=== PATIENT | male | born 1985 | race Caucasian/White ===

== ENCOUNTER 2017-09-30 10:53 | Emergency (ER) | payer BC ==
[2017-09-30] MEDS ORDERED: methylPREDNISolone Sodium Succinate 125 MG/2 ML SDV IM ONE (11:53)
--- NOTE | 2017-09-30 11:53 | EDM.PDOC ---
ED HPI GENERAL MEDICAL PROBLEM - General Chief Complaint: Skin Complaint Stated Complaint: POSSIBLE HIVES ALL OVER BODY Time Seen by Provider: 09/30/17 11:40 Source of Information: Reports: Patient History Limitations: Reports: No Limitations - History of Present Illness INITIAL COMMENTS - FREE TEXT/NARRATIVE: HISTORY AND PHYSICAL: History of present illness: [Patient comes to the emergency room complaining of hives. He is from [place] and is in the [place] area working. Over the past month he started to develop erythematous pruritic lesions to his entire body. He usually develops them after showering in the evening and are worse when he wakes up in the morning. States that he has had itching and lesions in his scalp down his trunk back upper and lower extremities. He has not had any fever or chills. He's not had symptoms of illness. He denies any new body washes, laundry detergent and soap. He has photographs on his phone that he brings with him to the ER today showing wheels and hive-like lesions consistent with an allergic reaction. He denies fever and chills. No difficulty swallowing, sore throat, chest pain shortness of breath or difficulty breathing. He has no other complaints or concerns. He noticed that he was having the same symptoms not just when he was here at work but also when he was at home. States that he takes his same body wash in soaps here that he is at home.] Review of systems: As per history of present illness and below otherwise all systems reviewed and negative. Past medical history: As per history of present illness and as reviewed below otherwise noncontributory. Surgical history: As per history of present illness and as reviewed below otherwise noncontributory. Social history: No reported history of drug or alcohol abuse. Family history: As per history of present illness and as reviewed below otherwise noncontributory. Physical exam: Gen.: Well-developed well-nourished male in no acute distress. HEENT: Atraumatic, normocephalic. Skin. Slightly erythematous hive-like lesions scattered across chest and back. Nonblanching. No bull's-eye type rashes. Symptoms have improved significantly when compared with those that were photographed. Neuro: Awake, alert, oriented. Motor and sensory unremarkable throughout. Exam nonfocal. Therapeutics: [Solu-Medrol 125 mg IM] Impression: [Hives] Plan: [Discussed with patient that skin changes appear most consistent with an allergic reaction. Recommend that he take a daily antihistamine such as Claritin or Zyrtec and Benadryl at bedtime. Recommend he wash his sheets and bedding in fragrance free laundry detergent without a dryer sheet, get new fragrance free/ body wash, lotion soap. He is in agreement with today's discussion. All questions are answered and concerns are addressed.] Definitive disposition and diagnosis as appropriate pending reevaluation and review of above. skinrash Pain Score (Numeric/FACES): 5 - Related Data Allergies Allergy/AdvReac Type Severity Reaction Status Date / Time No Known Allergies Allergy Verified 09/30/17 11:14 Home Meds: Home Meds prednisoLONE [Prednisolone] 200 mg PO DAILY 09/30/17 [History] Past Medical History - Past Health History Medical/Surgical History: Denies Medical/Surgical History - Infectious Disease History Infectious Disease History: Reports: Chicken Pox Social & Family History - Family History Family Medical History: Noncontributory - Tobacco Use Smoking Status *Q: Never Smoker - Caffeine Use Caffeine Use: Reports: Coffee, Energy Drinks, Soda, Tea - Recreational Drug Use Recreational Drug Use: No ED ROS GENERAL - Review of Systems Review Of Systems: ROS reveals no pertinent complaints other than HPI. ED EXAM, SKIN/RASH Exam: See Below Course - Vital Signs Last Recorded V/S: Last Vital Signs Temp 98.1 F 09/30/17 11:15 Pulse 109 H 09/30/17 11:15 Resp 18 09/30/17 11:15 BP 174/92 H 09/30/17 11:15 Pulse Ox 98 09/30/17 11:15 - Orders/Labs/Meds Meds: Medications Discontinued Medications Generic Name Dose Route Start Last Admin Trade Name Umeshq PRN Reason Stop Dose Admin Methylprednisolone Sodium Succinate 125 mg 09/30/17 11:53 09/30/17 12:02 Solu-Medrol IM 09/30/17 11:54 125 mg ONETIME ONE Administration Departure - Departure Time of Disposition: 11:55 Disposition: Home, Self-Care 01 Condition: Good Clinical Impression: Hives - Discharge Information Instructions: Hives, [id number] Referrals: PCP,None [Primary Care Provider] - Forms: ED Department Discharge Additional Instructions: The following information is given to patients seen in the emergency department who are being discharged to home. This information is to outline your options for follow-up care. We provide all patients seen in our emergency department with a follow-up referral. The need for follow-up, as well as the timing and circumstances, are variable depending upon the specifics of your emergency department visit. If you don't have a primary care physician on staff, we will provide you with a referral. We always advise you to contact your personal physician following an emergency department visit to inform them of the circumstance of the visit and for follow-up with them and/or the need for any referrals to a consulting specialist. The emergency department will also refer you to a specialist when appropriate. This referral assures that you have the opportunity for follow-up care with a specialist. All of these measure are taken in an effort to provide you with optimal care, which includes your follow-up. Under all circumstances we always encourage you to contact your private physician who remains a resource for coordinating your care. When calling for follow-up care, please make the office aware that this follow-up is from your recent emergency room visit. If for any reason you are refused follow-up, please contact the [facility] emergency department at and asked to speak to the emergency department charge nurse. [facility] [address] [place] [id number] Establish care with a local primary care provider at the clinic listed above and follow-up there. Take Claritin 10 mg or Zyrtec 10 mg one tablet daily until you see the watchguard. You may take Benadryl at bedtime or after your shower. These medications are available [id number]. Use new fragrance free, sensitive skin soap/ body wash and laundry detergent. Return to ER as needed as discussed.
== END 2017-09-30 12:30 | disposition home or self-care (01) ==
LOC: MW.ED 10:53
DX: L50.9 Urticaria, unspecified (principal); Z79.899 Other long term (current) drug therapy
CPT/HCPCS: 96372; 99282; J2930; 99283